=== PATIENT | female | born 1975 | race Asian ===

== ENCOUNTER 2016-07-22 23:20 | Emergency (ER) | payer MEDICAID ==
[~2016-07-22] VITALS: Ht 154.9 cm; Wt 63.5 kg
--- NOTE | 2016-07-22 23:25 | Emergency Room Report ---
History of Present Illness General Chief Complaint: Chest Pain Source: Patient, EMS Present Illness HPI Presents with substernal chest pain that began at 1 pm after lunch. She had nausea at that time. Not exertional but she also feels tingling and dizziness at the same time. Never before with chest symptoms. Paramedics treated with aspirin and nitrates without significant change. No fever, cough, URI, vomit, diarrhea, dysuria. Not . Family history of diabetes but not heart disease. She does not smoke does not have hypertension. Allergies: Coded Allergies: PENICILLINS (Verified Allergy, Mild, 07/22/16) Uncoded Allergies: PENICILLIN (Allergy, Unknown, 07/22/16) Patient History Past Medical History: see triage record Pertinent Family History: DM Social History: Denies: smoking Social History Narrative at home with child Last Menstrual Period: JUL 16 Now: No Reviewed Nursing Documentation: PMH: Agreed, PSxH: Agreed Nursing Documentation-PMH Past Medical History: No Stated History Review of Systems All Other Systems: negative except mentioned in HPI Physical Exam Vital Signs Date Time Temp Pulse Resp B/P Pulse Ox O2 Delivery O2 Flow Rate FiO2 07/22/16 23:14 99.1 86 16 147/82 98 Room Air Sp02 EP Interpretation: reviewed, normal General Appearance: well appearing, no apparent distress, GCS 15 Head: normocephalic Eyes: bilateral eye PERRL, bilateral eye normal inspection ENT: moist mucus membranes Neck: supple Respiratory: lungs clear, normal breath sounds Cardiovascular #1: regular rate, rhythm Cardiovascular #2: 2+ radial (R) Gastrointestinal: normal inspection, normal bowel sounds, non tender, no mass, non-distended Musculoskeletal: back normal, gait/station normal, normal range of motion Neurologic: alert, oriented x3, grossly normal Psychiatric: mood/affect normal Skin: normal inspection, warm/dry Medical Decision Making Diagnostic Impression: Primary Impression: New onset type 2 diabetes mellitus Additional Impression: Chest pain Qualified Codes: R07.9 - Chest pain, unspecified ER Course Patient presents with chest pain is atypical. She does not have significant cardiac risk factors. Accu-Chek in the field was in the 200s. We have to evaluate cardiac as well as the elevated glucose with labs, CXR, EKG. Treatment with zofran. EKG normal. CXR normal. Labs with elevated glucose. Patient started on metformin. Improved with treatment. Patient stable for outpatient observation and treatment. Laboratory Tests Test 07/22/16 23:33 White Blood Count 8.6 K/UL (4.8-10.8) Red Blood Count 4.56 M/UL (4.20-5.40) Hemoglobin 13.5 G/DL (12.0-16.0) Hematocrit 41.6 % (37.0-47.0) Mean Corpuscular Volume 91 FL (80-99) Mean Corpuscular Hemoglobin 29.5 PG (27.0-31.0) Mean Corpuscular Hemoglobin Concent 32.3 G/DL (32.0-36.0) Red Cell Distribution Width 12.0 % (11.6-14.8) Platelet Count 339 K/UL (150-450) Mean Platelet Volume 7.5 FL (6.5-10.1) Neutrophils (%) (Auto) 51.6 % (45.0-75.0) Lymphocytes (%) (Auto) 33.5 % (20.0-45.0) Monocytes (%) (Auto) 8.8 % (1.0-10.0) Eosinophils (%) (Auto) 4.3 % (0.0-3.0) H Basophils (%) (Auto) 1.8 % (0.0-2.0) Sodium Level 136 mEQ/L (135-145) Potassium Level 3.5 mEQ/L (3.4-4.9) Chloride Level 97 mEQ/L (98-107) L Carbon Dioxide Level 24 mEQ/L (20-30) Anion Gap 15 (5-15) Blood Urea Nitrogen 17 mg/dL (7-23) Creatinine 0.7 mg/dL (0.5-0.9) Estimate Glomerular Filtration Rate > 60 mL/min (>60) Glucose Level 217 mg/dL (74-106) H Calcium Level 8.9 mg/dL (8.6-10.2) Total Bilirubin 0.5 mg/dL (0.0-1.2) Aspartate Amino Transferase (AST) 22 U/L (5-40) Alanine Aminotransferase (ALT) 27 U/L (3-33) Alkaline Phosphatase 67 U/L (35-104) Total Creatine Kinase 140 U/L (26-140) Troponin I < 0.30 ng/mL (<=0.30) Total Protein 7.3 g/dL (6.6-8.7) Albumin 4.3 g/dL (3.5-5.2) Globulin 3.0 g/dL Albumin/Globulin Ratio 1.4 (1.0-2.7) EKG Diagnostic Results Rate: normal Rhythm: NSR ST Segments: no acute changes Rhythm Strip Diag. Results EP Interpretation: yes Rhythm: NSR, no PVC's, no ectopy Chest X-Ray Diagnostic Results EP Interpretation: Yes Findings: no consolidation, no effusion, no pneumothorax, no acute cardiopulmonary disease Number of Views: 1 Last Vital Signs Date Time Temp Pulse Resp B/P Pulse Ox O2 Delivery O2 Flow Rate FiO2 07/22/16 23:14 99.1 86 16 147/82 98 Room Air Status: improved Disposition: HOME, SELF-CARE Condition: Improved Scripts Lancets (1ST CHOICE LANCETS) 1 Each Each 1 EACH MC DAILY Y for weakness, #30 Prov: Jan Reinoso M.D. 07/23/16 Blood-Glucose Meter, Drum-Type (ACCU-CHEK) 1 Each Kit 1 EACH MC DAILY Y for and if weakness, #1 Prov: Jan Reinoso M.D. 07/23/16 Ondansetron Odt* (ZOFRAN ODT*) 4 Mg Tab.rapdis 4 MG ORAL Q8H Y for Nausea & Vomiting, #6 TAB 1 Refill Prov: Jan Reinoso M.D. 07/23/16 Metformin Hcl* (METFORMIN HCL*) 500 Mg Tablet 500 MG ORAL TWICE A DAY, #60 TAB Prov: Jan Reinoso M.D. 07/23/16 Jan Reinoso M.D. Jul 22, 2016 23:25
[2016-07-22] MEDS ORDERED: DiphenhydrAMINE 50mg/ml Inj IVP ONE (23:30)
[2016-07-22] MEDS ORDERED: Famotidine 20 MG/ 2ML VIAL IVP ONE (23:30)
[2016-07-22 23:38] VITALS: BP 142/89
[2016-07-22 23:48] LABS: BASOPHILS % (AUTO) 1.8 % (0.0-2.0); EOSINOPHILS % (AUTO) 4.3 % (0.0-3.0); LYMPHOCYTES % (AUTO) 33.5 % (20.0-45.0); MEAN CORPUSCULAR HEMOGLOBIN 29.5 PG (27.0-31.0); MEAN CORPUSCULAR HGB CONC 32.3 G/DL (32.0-36.0); MEAN CORPUSCULAR VOLUME 91 FL (80-99); MEAN PLATELET VOLUME 7.5 FL (6.5-10.1); MONOCYTES % (AUTO) 8.8 % (1.0-10.0); NEUTROPHILS % (AUTO) 51.6 % (45.0-75.0); PLATELET COUNT 339 K/UL (150-450); RED BLOOD COUNT 4.56 M/UL (4.20-5.40); WHITE BLOOD COUNT 8.6 K/UL (4.8-10.8)
[2016-07-23 00:03] LABS: TROPONIN I < 0.30 ng/mL (<=0.30)
[2016-07-23 00:04] LABS: ALANINE AMINOTRANSFERASE 27 U/L (3-33); ALBUMIN/GLOBULIN RATIO 1.4 (1.0-2.7); ANION GAP 15 (5-15); ASPARTATE AMINO TRANSFERASE 22 U/L (5-40); CALCIUM 8.9 mg/dL (8.6-10.2); CARBON DIOXIDE 24 mEQ/L (20-30); CHLORIDE 97 mEQ/L (98-107); CREATININE 0.7 mg/dL (0.5-0.9); GLOMERULAR FILTRATION RATE > 60 mL/min (>60); HEMOLYSIS 21; POTASSIUM 3.5 mEQ/L (3.4-4.9); SODIUM 136 mEQ/L (135-145); TOTAL PROTEIN 7.3 g/dL (6.6-8.7)
[2016-07-23] MEDS ORDERED: metFORMIN 500mg tab ORAL STA (01:21)
[2016-07-23] MEDS ORDERED: ZOFRAN ODT4 MG ORAL (01:24)
[2016-07-23] MEDS ORDERED: METFORMIN HCL500 M1 ORAL (01:24)
[2016-07-23] MEDS ORDERED: ACCU-CHEK1 EAC5 MC (01:37)
[2016-07-23] MEDS ORDERED: 1ST CHOICE LAN1 EACH MC (01:37)
[2016-07-23 02:04] VITALS: BP 133/90
[2016-07-23 02:05] VITALS: BP 133/90
--- NOTE | 2016-07-23 14:29 | Diagnostic Imaging Report ---
Indication: Chest pain Technique: Single portable AP view of the chest. Findings: Comparison: None. The bones and extra pulmonary soft tissues, cardiomediastinal silhouette, pulmonary vasculature and parenchyma, and pleural surfaces are unremarkable. IMPRESSION: Negative portable AP chest.
--- NOTE | 2016-07-23 20:13 | Cardiology Report ---
APPROVED REPORT EKG Measurement Heart [id number] Normal sinus rhythm Normal ECG
== END 2016-07-23 02:25 | disposition home or self-care (01) ==
LOC: EDBD 23:20 → EMR 23:24
DX: E11.9 Type 2 diabetes mellitus without complications (principal); R07.9 Chest pain, unspecified; Z88.0 Allergy status to penicillin
CPT/HCPCS: 36415; 71010; 80053; 82550; 82962; 84484; 85025; 93005; 96361; 96374; 96375; 99284; J1200; J2405; S0028

== ENCOUNTER 2018-04-03 18:32 | Emergency (ER) | payer MEDICAID ==
[~2018-04-03] VITALS: Ht 152.4 cm; Wt 63.5 kg
[~2018-04-03 18:32] MED LIST: 1ST CHOICE LAN1 EACH MC; ACCU-CHEK1 EAC5 MC; METFORMIN HCL500 M1 ORAL; ZOFRAN ODT4 MG ORAL
[2018-04-03] MEDS ORDERED: ATORVASTATIN CA20 MG ORAL (18:48)
--- NOTE | 2018-04-03 19:07 | Emergency Room Report ---
History of Present Illness General Chief Complaint: Dizziness Source: Patient Present Illness HPI Patient presents with dizziness and headache. She was repeatedly taking her blood pressure and she had diastolics anywhere from 105 to 120. She felt anxious with this. 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 No fevers or chest pain. She was taken off of hydrochlorothiazide in September by her doctor. It was controlling her blood pressure well. She's worried about it being off that medication at this time. Pain in head 02/18, pressure, band-like , constant, not radiating. She is also concerned because her mom and also her life partner from strokes. No fevers, chills, abdominal pain, chest pain, palpitations, NVD, dysuria, calf pain, edema. She was diagnosed with diabetes Jul 2016 and is on oral medication. Her sugars have been controlled. 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 Last Menstrual Period: 03/25/2018 Reviewed Nursing Documentation: PMH: Agreed; PSxH: Agreed Nursing Documentation-PMH Past Medical History: No History, Except For Hx Hypertension: Yes Hx Diabetes: Yes Review of Systems All Other Systems: negative except mentioned in HPI Physical Exam Vital Signs Date Time Temp Pulse Resp B/P (MAP) Pulse Ox O2 Delivery O2 Flow Rate FiO2 04/03/18 18:40 98.6 92 14 145/99 98 Room Air 98.6 Sp02 EP Interpretation: reviewed, normal General Appearance: well appearing, no apparent distress, GCS 15 Head: normocephalic Eyes: bilateral eye normal inspection, bilateral eye PERRL, bilateral eye EOMI ENT: moist mucus membranes Neck: supple Respiratory: lungs clear, normal breath sounds Cardiovascular #1: regular rate, rhythm Cardiovascular #2: 2+ radial (R) Gastrointestinal: normal inspection, normal bowel sounds, non tender, no mass, non-distended Musculoskeletal: back normal, gait/station normal, normal range of motion Neurologic: alert, oriented x3, automatic clipper III-XII nml as tested, motor strength/tone normal, DTRs symmetric, sensory intact, cerebellar normal, normal gait, speech normal Psychiatric: anxious Skin: normal inspection, warm/dry Medical Decision Making Diagnostic Impression: Primary Impression: Hypertension Qualified Codes: I10 - Essential (primary) hypertension Additional Impression: Hypokalemia ER Course Patient presents with uncontrolled blood pressure and anxiety. Differential includes bleeding hypertension, hypertensive urgency, anxiety, electrolyte imbalance, acute cord syndrome amongst others. Evaluation will be with EKG and labs. Her exam is nonfocal and a CT is not indicated. Based on what her blood pressures are doing she may be treated here. She took Lasix him concerned that her potassium was converted below. EKG without injury. Chest x-ray and rotation. Potassium is slightly low. Glucose 107. Normal renal function. Blood pressures improved. Potassium is given. Discussed with patient starting Dyazide. She is complaining about headache and Tylenol is given. No medical emergency at this time. The patient is stable for outpatient observation and treatment. Laboratory Tests Test 04/03/18 19:17 White Blood Count 9.0 K/UL (4.8-10.8) Red Blood Count 4.76 M/UL (4.20-5.40) Hemoglobin 14.1 G/DL (12.0-16.0) Hematocrit 41.6 % (37.0-47.0) Mean Corpuscular Volume 87 FL (80-99) Mean Corpuscular Hemoglobin 29.5 PG (27.0-31.0) Mean Corpuscular Hemoglobin Concent 33.8 G/DL (32.0-36.0) Red Cell Distribution Width 11.0 % (11.6-14.8) L Platelet Count 387 K/UL (150-450) Mean Platelet Volume 7.0 FL (6.5-10.1) Neutrophils (%) (Auto) 64.4 % (45.0-75.0) Lymphocytes (%) (Auto) 26.3 % (20.0-45.0) Monocytes (%) (Auto) 6.5 % (1.0-10.0) Eosinophils (%) (Auto) 1.4 % (0.0-3.0) Basophils (%) (Auto) 1.4 % (0.0-2.0) Prothrombin Time 10.3 SEC (9.30-11.50) Prothrombin Time INR 1.0 (0.9-1.1) PTT 32 SEC (23-33) Urine Color Pale yellow Urine Appearance Clear Urine pH 7 (4.5-8.0) Urine Specific [place] 1.005 (1.005-1.035) Urine Protein Negative (NEGATIVE) Urine Glucose (UA) Negative (NEGATIVE) Urine Ketones Negative (NEGATIVE) Urine Blood 2+ (NEGATIVE) H Urine Nitrite Negative (NEGATIVE) Urine Bilirubin Negative (NEGATIVE) Urine Urobilinogen Normal MG/DL (0.0-1.0) Urine Leukocyte Esterase Negative (NEGATIVE) Urine RBC 5-10 /HPF (0 - 2) H Urine WBC 0-2 /HPF (0 - 2) Urine Squamous Epithelial Cells Moderate /LPF (NONE/OCC) H Urine Bacteria Few /HPF (NONE) Urine HCG, Qualitative Negative (NEGATIVE) Sodium Level 138 MMOL/L (136-145) Potassium Level 3.4 MMOL/L (3.5-5.1) L Chloride Level 103 MMOL/L (98-107) Carbon Dioxide Level 28 MMOL/L (21-32) Anion Gap 8 mmol/L (5-15) Blood Urea Nitrogen 7 mg/dL (7-18) Creatinine 0.7 MG/DL (0.55-1.30) Estimate Glomerular Filtration Rate > 60 mL/min (>60) Glucose Level 107 MG/DL (74-106) H Calcium Level 9.3 MG/DL (8.5-10.1) Total Bilirubin 0.8 MG/DL (0.2-1.0) Aspartate Amino Transferase (AST) 16 U/L (15-37) Alanine Aminotransferase (ALT) 29 U/L (12-78) Alkaline Phosphatase 55 U/L (46-116) Total Creatine Kinase 108 U/L (26-308) Troponin I 0.000 ng/mL (0.000-0.056) Pro-B-Type Natriuretic Peptide 57 pg/mL (0-125) Total Protein 8.6 G/DL (6.4-8.2) H Albumin 4.1 G/DL (3.4-5.0) Globulin 4.5 g/dL Albumin/Globulin Ratio 0.9 (1.0-2.7) L Urine Opiates Screen Negative (NEGATIVE) Urine Barbiturates Screen Negative (NEGATIVE) Phencyclidine (PCP) Screen Negative (NEGATIVE) Urine Amphetamines Screen Negative (NEGATIVE) Urine Benzodiazepines Screen Negative (NEGATIVE) Urine Cocaine Screen Negative (NEGATIVE) Urine Marijuana (THC) Screen Negative (NEGATIVE) EKG Diagnostic Results Rate: normal Rhythm: NSR ST Segments: no acute changes Rhythm Strip Diag. Results EP Interpretation: yes Rhythm: NSR, no PVC's, no ectopy Chest X-Ray Diagnostic Results Chest X-Ray Diagnostic Results : Chest X-Ray Ordered: Yes # of Views/Limited/Complete: 1 View Indication: Other EP Interpretation: Yes Interpretation: no consolidation, no effusion, no pneumothorax Impression: No acute disease Electronically Signed by: Electronically signed by Jan Reinoso MD Last Vital Signs Date Time Temp Pulse Resp B/P (MAP) Pulse Ox O2 Delivery O2 Flow Rate FiO2 04/03/18 21:13 98.6 14 132/83 98 Room Air 209.5 04/03/18 18:40 92 Status: improved Disposition: HOME, SELF-CARE Condition: Improved Scripts Triamterene/Hydrochlorothiazide* (DYAZIDE 37.5-25 MG TAB*) 1 Each Tablet 1 TAB ORAL DAILY, #20 TAB 1 Refill Prov: Jan Reinoso M.D. 04/03/18 Jan Reinoso M.D. Apr 03, 2018 19:07
[2018-04-03 19:08] VITALS: BP 145/99
[2018-04-03 19:27] LABS: APPEARANCE,URINE CLEAR; BASOPHILS % (AUTO) 1.4 % (0.0-2.0); BILIRUBIN, URINE NEGATIVE (NEGATIVE); COLOR,URINE PALE YELLOW; EOSINOPHILS % (AUTO) 1.4 % (0.0-3.0); GLUCOSE, URINE (UA) NEGATIVE (NEGATIVE); HEMATOCRIT 41.6 % (37.0-47.0); HEMOGLOBIN 14.1 G/DL (12.0-16.0); KETONES,URINE NEGATIVE (NEGATIVE); LEUKOCYTE ESTERASE ,URINE NEGATIVE (NEGATIVE); LYMPHOCYTES % (AUTO) 26.3 % (20.0-45.0); MEAN CORPUSCULAR VOLUME 87 FL (80-99); MONOCYTES % (AUTO) 6.5 % (1.0-10.0); NEUTROPHILS % (AUTO) 64.4 % (45.0-75.0); NITRITE,URINE NEGATIVE (NEGATIVE); PH,URINE 7 (4.5-8.0); PLATELET COUNT 387 K/UL (150-450); PROTEIN,URINE NEGATIVE (NEGATIVE); RED BLOOD COUNT 4.76 M/UL (4.20-5.40); UROBILINOGEN,URINE NORMAL MG/DL (0.0-1.0)
[2018-04-03 19:37] LABS: ANION GAP 8 mmol/L (5-15); BLOOD UREA NITROGEN 7 mg/dL (7-18); CALCIUM 9.3 MG/DL (8.5-10.1); CARBON DIOXIDE 28 MMOL/L (21-32); CHLORIDE 103 MMOL/L (98-107); CREATININE 0.7 MG/DL (0.55-1.30); POTASSIUM 3.4 MMOL/L (3.5-5.1); SODIUM 138 MMOL/L (136-145)
[2018-04-03 19:49] LABS: ALANINE AMINOTRANSFERASE 29 U/L (12-78); ALBUMIN 4.1 G/DL (3.4-5.0); ALBUMIN/GLOBULIN RATIO 0.9 (1.0-2.7); ALKALINE PHOSPHATASE 55 U/L (46-116); ASPARTATE AMINO TRANSFERASE 16 U/L (15-37); BILIRUBIN,TOTAL 0.8 MG/DL (0.2-1.0); CREATINE KINASE 108 U/L (26-308)
[2018-04-03] MEDS ORDERED: TRIAMTERENE-HC1 EAC5 ORAL (21:04)
[2018-04-03 21:13] VITALS: BP 132/83
--- NOTE | 2018-04-04 18:14 | Diagnostic Imaging Report ---
Indication: Chest pain Technique: XRAY Chest 1v Comparison: 07/22/2016 Findings: Heart size appears mildly enlarged although this may be exaggerated by low lung volumes and AP technique. Mediastinal contours appear sharp. There is no definite focal airspace consolidation. Costophrenic sulci are sharp. No pneumothorax. No acute osseous abnormality. IMPRESSION: No definite radiographic evidence of acute cardiopulmonary disease. Question mild cardiomegaly, likely exaggerated by AP technique and low lung volumes. Dedicated PA and lateral views can be obtained for better evaluation of heart size as clinically indicated.
--- NOTE | 2018-04-04 19:55 | Cardiology Report ---
APPROVED REPORT EKG Measurement Heart [id number] MD [id number] Normal sinus rhythm Normal ECG
== END 2018-04-03 21:20 | disposition home or self-care (01) ==
LOC: EMR 19:25
DX: I10 Essential (primary) hypertension (principal); E87.6 Hypokalemia; E11.9 Type 2 diabetes mellitus without complications; Z88.0 Allergy status to penicillin
CPT/HCPCS: 36415; 71045; 80053; 80307; 81003; 81025; 82550; 83880; 84484; 85025; 85610; 85730; 93005; 99284; J8499